=== PATIENT | female | born 1965 | race Caucasian/White ===

== ENCOUNTER → 2020-08-07 | Outpatient (CLI) | payer OTHER ==
[~2020-08-07] MED LIST: ALBUTEROL2.5 MG/3 M INH; ALLERGY RELIEF10 M1 PO; ATORVASTATIN CA10 MG PO; CLONAZEPAM1 MG PO; CONSTULOSE10 GM/15 M PO; GABAPENTIN600 MG PO; HEPARIN SO5000 UNIT2 IVP; HYDROCODON-ACE1 EAC6 PO; KLONOPIN1 MG PO; PREMARIN 0.60.625 MG TD; PREMARIN VAG CR30 GM EXT; PROAIR HFA8.5 GM INH; PROTONIX 40 MG40 M1 PO; QUETIAPINE FUM100 MG PO; SEROQUEL100 MG PO; WIXELA 100-501 EACH INH; ZOFRAN4 MG PO; ZOLOFT50 MG PO
== END ==
LOC: MRI 10:00
DX: Z12.89 Encounter for screening for malignant neoplasm of other sites (principal); C96.9 Malignant neoplasm of lymphoid, hematopoietic and related tissue, unspecified
CPT/HCPCS: 70553; A9577

== ENCOUNTER → 2020-08-09 | Day surgery (SDC) | payer OTHER | END | disposition home or self-care (01) | LOC: OR 06:04 | PROVIDERS: Surgery | PROC: 02HV33Z Insertion of Infusion Device into Superior Vena Cava, Percutaneous Approach (ICD-10-PCS; principal; 2020-08-09 08:15) | DX: C34.92 Malignant neoplasm of unspecified part of left bronchus or lung (principal); F17.210 Nicotine dependence, cigarettes, uncomplicated; I10 Essential (primary) hypertension; K21.9 Gastro-esophageal reflux disease without esophagitis; F41.9 Anxiety disorder, unspecified; M19.90 Unspecified osteoarthritis, unspecified site; F32.9 Major depressive disorder, single episode, unspecified; E78.5 Hyperlipidemia, unspecified; G43.909 Migraine, unspecified, not intractable, without status migrainosus; G62.9 Polyneuropathy, unspecified; Z79.899 Other long term (current) drug therapy | CPT/HCPCS: 71045; 71046; 77001; C1769; C1788; J0690; J1100; J1642; J2001; J2250; J2405; J2704; J3010; J7030; J7040; J7120 ==

== ENCOUNTER 2020-11-15 17:56 | Inpatient (IN) | payer OTHER ==
[~2020-11-15] VITALS: Ht 152.4 cm; Wt 73.5 kg
[~2020-11-15 17:56] MED LIST changes: -ALBUTEROL2.5 MG/3 M INH; -ALLERGY RELIEF10 M1 PO; -ATORVASTATIN CA10 MG PO; -CLONAZEPAM1 MG PO; -CONSTULOSE10 GM/15 M PO; -GABAPENTIN600 MG PO; -HEPARIN SO5000 UNIT2 IVP; -HYDROCODON-ACE1 EAC6 PO; -PROTONIX 40 MG40 M1 PO; -QUETIAPINE FUM100 MG PO
[2020-11-15 19:23] LABS: HEMOGLOBIN 10.2 gm/dl (12.3-15.3); RED BLOOD COUNT 3.09 M/UL (4.00-5.10); WHITE BLOOD COUNT 9.4 K/UL (4.5-11.0)
[2020-11-15 19:50] LABS: BUN/CREATININE RATIO 10 (0-10)
[2020-11-15] MEDS ORDERED: CLONAZEPAM1 MG PO (22:09)
[2020-11-15] MEDS ORDERED: HYDROCODON-ACE1 EAC6 PO (22:09)
[2020-11-15] MEDS ORDERED: GABAPENTIN600 MG PO (22:09)
[2020-11-15] MEDS ORDERED: ALBUTEROL2.5 MG/3 M INH (22:10)
[2020-11-15] MEDS ORDERED: QUETIAPINE FUM100 MG PO (22:10)
[2020-11-15] MEDS ORDERED: ALLERGY RELIEF10 M1 PO (22:12)
[2020-11-15] MEDS ORDERED: ATORVASTATIN CA10 MG PO (22:12)
[2020-11-15] MEDS ORDERED: CONSTULOSE10 GM/15 M PO (22:13)
[2020-11-15] MEDS ORDERED: PROTONIX 40 MG40 M1 PO (22:14)
[2020-11-17 06:14] LABS: HEMOGLOBIN 9.7 gm/dl (12.3-15.3); RED BLOOD COUNT 2.99 M/UL (4.00-5.10)
[2020-11-17 06:18] LABS: WHITE BLOOD COUNT 6.2 K/UL (4.5-11.0)
[2020-11-17 06:34] LABS: BUN/CREATININE RATIO 10 (0-10)
[2020-11-18 06:55] LABS: HEMOGLOBIN 9.8 gm/dl (12.3-15.3); RED BLOOD COUNT 3.01 M/UL (4.00-5.10)
[2020-11-18 06:57] LABS: WHITE BLOOD COUNT 8.7 K/UL (4.5-11.0)
[2020-11-18 07:17] LABS: BUN/CREATININE RATIO 14 (0-10)
[2020-11-18] MEDS ORDERED: HEPARIN SO5000 UNIT2 IVP (11:58)
--- NOTE | 2020-11-18 14:31 | NUR ---
1400- CALLED DR. LEWIS PER DR ALEJO TO LET HIM KNOW THAT PATIENT IS ON THE WAITING LIST AT .
[2020-11-19 06:11] LABS: HEMOGLOBIN 9.5 gm/dl (12.3-15.3); RED BLOOD COUNT 2.88 M/UL (4.00-5.10); WHITE BLOOD COUNT 7.7 K/UL (4.5-11.0)
[2020-11-19 06:37] LABS: BUN/CREATININE RATIO 12 (0-10)
[2020-11-20 03:29] LABS: RED BLOOD COUNT 3.04 M/UL (4.00-5.10); WHITE BLOOD COUNT 9.2 K/UL (4.5-11.0)
[2020-11-20 03:51] LABS: BUN/CREATININE RATIO 11 (0-10)
== END 2020-11-20 20:28 | disposition short-term general hospital (02) | DRG 299 ==
LOC: ER1 17:56 → MED SURG 4 20:02 → CDU 20:02 → MED SURG 4 21:07
PROVIDERS: Internal Medicine; Physician Assistant; ADMIT Internal Medicine
PROC: B24BZZZ Ultrasonography of Heart with Aorta (ICD-10-PCS; principal; 2020-11-18)
DX: I82.432 Acute embolism and thrombosis of left popliteal vein (principal); I26.99 Other pulmonary embolism without acute cor pulmonale; C34.91 Malignant neoplasm of unspecified part of right bronchus or lung; Z20.822 Contact with and (suspected) exposure to COVID-19; F41.9 Anxiety disorder, unspecified; G89.29 Other chronic pain; G62.9 Polyneuropathy, unspecified; M19.90 Unspecified osteoarthritis, unspecified site; E87.6 Hypokalemia; I82.412 Acute embolism and thrombosis of left femoral vein; M54.5 Low back pain; F32.9 Major depressive disorder, single episode, unspecified; J44.9 Chronic obstructive pulmonary disease, unspecified; Z87.891 Personal history of nicotine dependence; Z98.51 Tubal ligation status; Z90.710 Acquired absence of both cervix and uterus; Z88.5 Allergy status to narcotic agent; Z80.9 Family history of malignant neoplasm, unspecified; Z83.2 Family history of diseases of the blood and blood-forming organs and certain disorders involving the immune mechanism; Z80.6 Family history of leukemia; Z79.899 Other long term (current) drug therapy
CPT/HCPCS: ECHO; 36415; 71045; 71260; 80048; 80053; 82550; 82553; 83690; 83874; 84484; 85025; 85610; 85652; 85730; 93005; 93306; 93970; 96374; 99285; G0378; J1644; J7030; Q9967; U0002

== ENCOUNTER → 2020-11-15 | Outpatient (CLI) | payer OTHER | LOC: CT 11:00 | DX: Z12.89 Encounter for screening for malignant neoplasm of other sites (principal); C96.9 Malignant neoplasm of lymphoid, hematopoietic and related tissue, unspecified | CPT/HCPCS: 71260; Q9967 ==

== ENCOUNTER → 2021-04-18 | Outpatient (CLI) | payer OTHER ==
[~2021-04-18] MED LIST changes: +ALBUTEROL2.5 MG/3 M INH; +ALLERGY RELIEF10 M1 PO; +ATORVASTATIN CA10 MG PO; +CLONAZEPAM1 MG PO; +CONSTULOSE10 GM/15 M PO; +GABAPENTIN600 MG PO; +HEPARIN SO5000 UNIT2 IVP; +HYDROCODON-ACE1 EAC6 PO; +PROTONIX 40 MG40 M1 PO; +QUETIAPINE FUM100 MG PO
== END ==
LOC: CT 09:00
DX: Z12.89 Encounter for screening for malignant neoplasm of other sites (principal); C96.9 Malignant neoplasm of lymphoid, hematopoietic and related tissue, unspecified
CPT/HCPCS: 71260; Q9967

== ENCOUNTER → 2021-07-19 | Outpatient (CLI) | payer OTHER | LOC: CT 12:46 | DX: C96.9 Malignant neoplasm of lymphoid, hematopoietic and related tissue, unspecified (principal); Z12.89 Encounter for screening for malignant neoplasm of other sites | CPT/HCPCS: 71260; Q9967 ==

== ENCOUNTER → 2021-10-23 | Outpatient (CLI) | payer OTHER | LOC: CT 12:32 | DX: Z12.89 Encounter for screening for malignant neoplasm of other sites (principal); C96.9 Malignant neoplasm of lymphoid, hematopoietic and related tissue, unspecified | CPT/HCPCS: 71260; Q9967 ==

== ENCOUNTER → 2022-02-14 | Outpatient (CLI) | payer OTHER | LOC: CT 09:37 | DX: Z04.89 Encounter for examination and observation for other specified reasons (principal); C96.9 Malignant neoplasm of lymphoid, hematopoietic and related tissue, unspecified; J98.4 Other disorders of lung | CPT/HCPCS: 71260; Q9967 ==